=== PATIENT | male | born 1990 | race Caucasian/White ===

== ENCOUNTER 2021-03-14 18:48 | Emergency (ER) | payer MEDICARE, OTHER, SELFPAY ==
[2021-03-14] VITALS (7 sets, daily range): BP systolic 115–150; BP diastolic 81–100; PULSE 67–106; RESP 13–19; TEMP 36.8; O2SAT 95–98; BMI 29.4
--- NOTE | 2021-03-14 20:18 | EKG12_ITS ---
Test Reason : CP Blood Pressure : / mmHG Vent. Rate : 096 BPM Atrial Rate : 096 BPM P-R Int : 132 ms QRS Dur : 094 ms QT Int : 358 ms P-R-T Axes : 069 053 058 degrees QTc Int : 452 ms Normal sinus rhythm Normal ECG Confirmed by WU GREENBERG, BHASKAR ([id number]), proposal editor KIRIT BELCHER ([id number]) on 03/16/2021 10:34:04 AM Referred By: ISIDORO Confirmed By:BHASKAR WASHBURN MD
--- NOTE | 2021-03-14 20:19 | EDS_ITS ---
HPI History of Present Illness Chief Complaint: Palpitations Informant: patient Onset/Context/Timing Onset: Today Activity at onset: sudden Timing: Lasts (30 minutes) Quality: Positive for - (Racing) Location: Substernal Worsened By: Nothing Relieved By: Rest Narrative Narrative: Patient presents with palpitations that began today. Patient states he felt like his heart was racing earlier today. Patient states this resolved after approximately 30 minutes. Patient states that before this, he was eating some vegetable chips with ranch dressing then had a drink with CBD in it. Patient states he then noticed his heart racing. Patient states it got better when he got to the emergency department. Patient also states she has been under a lot of stress recently. Patient states he did have an episode of nausea and vomiting. Prior Similar Symptoms: No CVD Risk Factors: Negative for Hypertension, Diabetes, Hypercholesterolemia, Family History 1' </=55 and Smoking PE Risk Factors: Negative for Recent Travel/Surgery, Recent Immobilization, Prior DVT or PE and Cancer [facility] Medical History GERD (gastroesophageal reflux disease) Home Medications ibuprofen [IBU] 800 mg PO Q6H PRN 03/14/21 [History Last Taken Unknown] omeprazole 20 mg PO BID 03/14/21 [History Last Taken Unknown] Allergy/AdvReac Type Severity Reaction Status Date / Time No Known Allergies Allergy Verified 03/14/21 18:49 Social History Smoking Status: Former smoker ROS ROS ED Constitutional Constitutional ED: Reports chills and subjective; Denies fever(s) Eyes Eyes: Reports blurry vision; Denies change in vision ENT ENT ED: Denies rhinorrhea or sore throat Cardiovascular Cardiovascular: Reports chest pain, palpitations and racing heartbeat Respiratory/Chest Respiratory/Chest: Denies cough or dyspnea Gastrointestinal Gastrointestinal: Reports nausea and vomiting; Denies abdominal pain Genitourinary Genitourinary ED: Denies dysuria or hematuria Musculoskeletal Musculoskeletal: Reports neck pain; Denies back pain Integumentary Denies abscess or rash Neurologic Neurologic: Reports headache(s); Denies weakness Allergic/Immunologic Allergic/Immunologic ED: Denies mouth swelling or urticaria EXAM Physical Exam Const Vital Signs: 03/14/21 18:49 03/14/21 19:38 03/14/21 20:05 Temperature 98.3 F Temperature Source Temporal Pulse Rate 106 H 81 80 Respiratory Rate 18 16 13 Respiratory Effort Respiratory Pattern Blood Pressure 150/100 H 131/90 H 122/87 H Blood Pressure Mean 116 103 98 Pulse Ox 96 98 96 Oxygen Delivery Method Room Air Room Air Room Air 03/14/21 20:06 03/14/21 20:31 03/14/21 21:33 Temperature Temperature Source Pulse Rate 67 Respiratory Rate 19 H Respiratory Effort Normal Respiratory Pattern Normal Blood Pressure 115/82 H Blood Pressure Mean 93 Pulse Ox 97 95 Oxygen Delivery Method Room Air Room Air 03/14/21 22:09 Temperature 98.2 F Temperature Source Temporal Pulse Rate 74 Respiratory Rate 13 Respiratory Effort Respiratory Pattern Blood Pressure 130/89 H Blood Pressure Mean 102 Pulse Ox 97 Oxygen Delivery Method Room Air Positive well nourished and well developed General Appearance ED: well developed HEENT normocephalic and atraumatic Eyes PERRL and EOMs intact bilaterally Neck supple and no JVD Chest Wall palpation of chest normal Resp normal respiratory effort and clear to auscultation bilaterally Effort and Inspection: Negative for respiratory distress Cardio regular rate, regular rhythm and no murmurs GI normal to inspection, nondistended, normoactive bowel sounds, soft to palpation, non-tender and non-distended Extremity normal to inspection General Extremety ED: Negative for edema or tenderness General Extremity: Negative for edema Neuro oriented x3, CN's II-XII intact bilaterally and no sensory deficits noted Sensorium / Orientation: awake and alert Motor Exam: strength 5/5 throughout Psych mental status grossly normal Heart Score History: Slightly/Non-Suspicious ECG: Normal Age: </= 45 years Risk Factors: No Risk Factors Score: 0 MDM MDM MDM Narrative Medical decision making narrative: EKG was obtained. On my interpretation, it showed a normal sinus rhythm with a rate of 96. NM interval, QRS interval, and QTc intervals were all normal. Potter was normal. There are no acute ST or T wave changes. CBC and basic metabolic profile were within normal limits. Troponin was normal. Portable 1 view chest x-ray was obtained. On my interpretation, lung calderon are clear. There is normal cardiac silhouette. Bony thorax is normal. There is no acute process noted. Radiologist also interpreted the x-ray and agrees. Patient was advised of his findings. Patient is feeling better on reevaluation. Patient was instructed to follow-up with his primary care physician in 5 to 7 days. Patient understood and was agreeable with the plan. All questions were answered. Lab Data Attestation: I reviewed the patient's lab results. Labs: Laboratory Results - last 24 hr 03/14/21 03/14/21 19:40 19:40 WBC 8.5 RBC 4.96 Hgb 14.5 Hct 43.4 MCV 87.5 MCH 29.2 MCHC 33.4 RDW Std Deviation 42.5 RDW Coeff of Gino 13.3 Plt Count 278 MPV 10.3 Immature Gran % (Auto) 0.400 Neut % (Auto) 68.1 Lymph % (Auto) 23.8 [place] % (Auto) 6.8 Eos % (Auto) 0.5 Baso % (Auto) 0.4 Absolute Neuts (auto) 5.8 Absolute Lymphs (auto) 2.02 Nucleated RBC % 0 Sodium 141 Potassium 3.3 L Chloride 106 Carbon Dioxide 30.0 Anion Gap 5 BUN 11 Creatinine 1.03 Estim Creat Clear Calc 108.64 Est GFR (MDRD) Af Amer 107 Est GFR (MDRD) Non-Af 88 BUN/Creatinine Ratio 10.7 Glucose 124 H Calcium 8.7 Troponin I High Sens 5.1 Radiography Chest X-Ray - ED: 1 View, Read by ED Physician, Read by Radiologist and Normal Diagnostic Testing: Radiology Impression Chest X-Ray 03/14/21 20:24 IMPRESSION: No acute radiographic abnormalities. Electronically Signed: Nick Brown MD at 21:09 EDT Tel , Service support , EKG Initial EKG: Attestation: I personally reviewed and interpreted this EKG as follows: Interpretation: Sinus Rhythm (96) and No Acute Injury Pattern Prior EKG tracings: not available for review Discharge Plan Triage Chief Complaint: Palpitations ED Provider: Evan Morales Dx/Rx/DC Orders Clinical Impression: Heart palpitations Instructions: ED Palpitations Prescriptions: No Action ibuprofen [IBU] 800 mg Tablet 800 mg PO Q6H PRN (Reason: Pain) RF: 0 omeprazole 20 mg Tablet,Delayed Release (Dr/Ec) 20 mg PO BID RF: 0 Primary Care Provider: [facility] [Primary [place] Provider[facility] - 3-5 Days Disposition Disposition: Home, Self Care
--- NOTE | 2021-03-14 20:24 | RAD_ITS ---
INDICATION: chest pain EXAMINATION/TECHNIQUE: X-RAY - XR Chest 1 View COMPARISON: None. FINDINGS: The lungs are clear. The cardiomediastinal silhouette is unremarkable. No pleural effusion or pneumothorax. No acute osseous abnormalities. RAD/Chest 1 View (Portable) IMPRESSION: No acute radiographic abnormalities. Electronically Signed: Nick Brown MD at 21:09 EDT Tel , Service support ,
[2021-03-14] MEDS: Aspirin 81 MG TAB.CHEW 324 MG PO (20:28)
[2021-03-14 20:33] LABS: Absolute Lymphocyte Count 2.02 X10^3/uL (0.83-4.51); Absolute Neutrophil Count 5.8 X10^3/uL (2.0-7.7); Basophil# 0.03 X10^3/uL; Basophil% 0.4 % (0-1); Eosinophil# 0.04 X10^3/uL; Eosinophils% 0.5 % (0-5); Hematocrit 43.4 % (40-54); Hemoglobin 14.5 g/dL (13.0-16.5); Lymphocyte # 2.02 X10^3/ul (0.83-4.51); Lymphocyte % 23.8 % (19-41); Mean Corp Hgb Conc 33.4 g/dL (32-36); Mean Corpuscular Hgb 29.2 pg (27.0-32.0); Mean Corpuscular Volume 87.5 fL (80-94); Mean Platelet Vol. 10.3 fl (6.2-12.0); Monocyte# 0.58 X10^3/uL; Monocyte% 6.8 % (0-10); NRBC Flagged by Analyzer 0 % (0-5); Neutrophil # 5.79 X10^3/uL (2.7-7.7); Neutrophil % 68.1 % (47-70); Platelet Count 278 K/mm3 (150-450); RBC Distribution Width CV 13.3 % (11.6-14.6); RBC Distribution Width SD 42.5 fl (35.1-43.9); Red Blood Count 4.96 M/mm3 (4.6-6.2); White Blood Count 8.5 K/mm3 (4.4-11.0)
[2021-03-14 20:45] LABS: Anion Gap 5 (5-15); BUN 11 mg/dL (7-18); BUN/Creat Ratio 10.7 RATIO (10-20); Calcium,Total 8.7 mg/dL (8.5-10.1); Chloride 106 mmol/L (98-107); Creatinine, Serum 1.03 mg/dL (0.70-1.30); EST Glomerular Filtration Rate 88 mL/min (>60); Est Glom Filt Rate - Afr Amer 107 mL/min (>60); Estimated Creatinine Clearance 108.64 ml/min; Glucose 124 mg/dL (74-106); Potassium 3.3 mmol/L (3.5-5.1); Sodium Level 141 mmol/L (136-145); Troponin-I HS 5.1 pg/mL (3.0-78.5)
== END 2021-03-14 23:17 | disposition home or self-care (01) ==
PROVIDERS: Emergency Provider Emergency Medicine
DX: R00.2 Palpitations (principal); K21.9 Gastro-esophageal reflux disease without esophagitis; Z79.899 Other long term (current) drug therapy; Z87.891 Personal history of nicotine dependence
CPT/HCPCS: 71045; 80048; 84484; 85025; 93005; 99285

== ENCOUNTER → 2025-05-11 | Outpatient (CLI) | payer MEDICARE, OTHER, SELFPAY ==
[2025-05-11 10:59] LABS: Hematocrit 42.8 % (40-54); Hemoglobin 14.4 g/dL (13.0-16.5); Mean Corp Hgb Conc 33.6 g/dL (32-36); Mean Corpuscular Volume 87.2 fL (80-94); Mean Platelet Vol. 10.4 fl (6.2-12.0); Platelet Count 256 K/mm3 (150-450); RBC Distribution Width CV 13.2 % (11.6-14.6); RBC Distribution Width SD 42.5 fl (35.1-43.9); Red Blood Count 4.91 M/mm3 (4.6-6.2); White Blood Count 6.1 K/mm3 (4.4-11.0)
[2025-05-11 11:44] LABS: AST(SGOT) 21 U/L (<=37); Alanine Aminotransfer ALT/SGPT 19 U/L (<=46); Albumin, Serum 4.1 g/dL (3.5-5.0); Alkaline Phosphatase 61 U/L (40-129); Anion Gap 11 (5-15); BUN 12 mg/dL (4-19); BUN/Creat Ratio 14.5 RATIO (10-20); Calcium,Total 8.9 mg/dL (7.6-11.0); Carbon Dioxide 22.6 mmol/L (21.0-32.0); Chloride 105 mmol/L (98-108); Cholesterol 190 mg/dL (<=200); Globulin 2.5 g/dL (2.2-4.2); Glucose 93 mg/dL (70-99); Low Density Lipoprotein Calc. 115 mg/dL; Potassium 4.2 mmol/L (3.3-5.1); Triglycerides 155 mg/dL; Very Low Density Lipoprotein 31 mg/dL (5-40); cholesterol:hdl ratio screen 4.29
[2025-05-12 15:34] LABS: Vitamin D,25 Hydroxy 32.8 ng/mL (30-100)
[2025-05-14 11:09] LABS: Testosterone, % Free 3.20 % (1.50-4.20); Testosterone, Free 11.33 ng/dL (5.00-21.00)
== END | disposition home or self-care (01) ==
LOC: MTLAB 07:31
PROVIDERS: PCP Family Medicine; Referring Provider Family Medicine; Visit Provider Family Medicine
DX: N62 Hypertrophy of breast (principal); R60.9 Edema, unspecified; Z13.1 Encounter for screening for diabetes mellitus; Z13.220 Encounter for screening for lipoid disorders
CPT/HCPCS: 36415; 80053; 80061; 82306; 83036; 84402; 84403; 84443; 85027